=== PATIENT | female | born 1955 | race Caucasian/White ===

== ENCOUNTER 2016-04-30 06:16 | Inpatient (IN) ==
[2016-04-24 12:52] LABS: Basophils # (Auto) 0 K/mcL (0.0-0.3); Basophils % (Auto) 0.3 % (0.0-2.0); Eosinophils # (Auto) 0.3 K/mcL (0.0-0.7); Eosinophils % (Auto) 2.1 % (0.0-7.0); Granulocytes % (Auto) 70.6 % (38.0-78.0); Lymphocytes # (Auto) 2.1 K/mcL (1.5-4.8); Lymphocytes % (Auto) 17.1 % (15.5-49.0); Mean Cell Volume 85.9 fL (80.0-100.0); Mean Corpuscular HGB Conc 32.4 g/dL (31.0-36.0); Mean Corpuscular Hemoglobin 27.9 pg (26.0-34.0); Monocytes # (Auto) 1.2 K/mcL (0.1-0.9); Monocytes % (Auto) 9.9 % (1.0-9.0); Platelet Count 413 K/mcL (140-440); RBC 4.74 M/mcL (4.00-5.20); Red Cell Distribution Width 13.6 % (11.5-14.5)
[2016-04-24 12:59] LABS: Blood Urea Nitrogen 12 mg/dl (8-23)
[2016-04-24 14:03] LABS: Appearance,Urine HAZY; Bilirubin,Urine NEG (NEG); Color,Urine YELLOW; Glucose,Urine (UA) NEGATIVE (NEG); Leukocyte Esterase,Urine NEG /uL (NEG); Nitrate,Urine NEG (NEG); Protein,Urine NEG (NEG); Specific Gravity,Urine 1.021 (1.000-1.035); Urine Blood NEG mg/dL (<0.03); Urobilinogen,Urine NEG (NEG)
[~2016-04-30 06:16] MED LIST: ACETAMINOPHEN 500 MG TABLET PO SCH; CELECOXIB 200 MG CAPSULE PO SCH; PREGABALIN 150 MG CAPSULE PO SCH; ceFAZolin 1 GM VIAL IV SCH; oxyCODONE 10 MG TAB.ER.12H PO SCH
[2016-04-30] MEDS ORDERED: KETOROLAC 30 MG, ROPIVACAINE HCL/PF 49.5 ML, EPINEPHrine 0.5 MG, 0.9 % SODIUM CHLORIDE ... IJ SCH (06:30)
[2016-04-30] MEDS ORDERED: LIDOCAINE HCL/PF 100 MG/5 ML SYRINGE IV ONE (07:50)
[2016-04-30] MEDS ORDERED: MIDAZOLAM 5 MG/5 ML VIAL IV ONE (07:50)
[2016-04-30] MEDS ORDERED: DEXAMETHASONE 10 MG/ML VIAL IV ONE (07:50)
[2016-04-30] MEDS ORDERED: ONDANSETRON 4 MG/2 ML VIAL IV ONE (07:50)
[2016-04-30] MEDS ORDERED: PROPOFOL 200 MG/20 ML VIAL IV ONE (07:50)
[2016-04-30] MEDS ORDERED: ROPIVACAINE HCL/PF 30 ML VIAL IJ ONE (07:50)
[2016-04-30] MEDS ORDERED: TRANEXAMIC ACID 1,000 MG/10 ML VIAL IV ONE ×2 (07:50→09:32)
[2016-04-30] MEDS ORDERED: GENTAMICIN SULFATE 800 MG/20 ML VIAL IR ONE (08:41)
[2016-04-30] MEDS ORDERED: diphenhydrAMINE 50 MG/ML VIAL IV PRN (08:50)
[2016-04-30] MEDS ORDERED: HYDROmorphone 2 MG/ML SYRINGE IV PRN ×2 (08:50→09:32)
[2016-04-30] MEDS ORDERED: NALOXONE HCL 0.4 MG/ML VIAL IV PRN (08:50)
[2016-04-30] MEDS ORDERED: fentaNYL 100 MCG/2 ML VIAL IV PRN (08:50)
[2016-04-30] MEDS ORDERED: ONDANSETRON 4 MG/2 ML VIAL IV PRN ×2 (08:50→09:32)
[2016-04-30] MEDS ORDERED: IPRATROPIUM/ALBUTEROL 3 ML AMPUL.NEB NEB PRN (08:50)
[2016-04-30] MEDS ORDERED: FLUMAZENIL 0.1 MG/ML ML IV PRN (08:50)
[2016-04-30] MEDS ORDERED: PROMETHAZINE 25 MG/ML VIAL IV PRN (08:50)
[2016-04-30] MEDS ORDERED: LACTATED RINGERS 250 ML IV PRN (08:50)
[2016-04-30] MEDS ORDERED: MEPERIDINE 25 MG/ML SYRINGE IV PRN (08:50)
[2016-04-30] MEDS ORDERED: METHOCARBAMOL 1,000 MG/10 ML VIAL IV PRN (08:50)
[2016-04-30] MEDS ORDERED: BENZOCAINE/MENTHOL 1 LOZENGE PO PRN ×2 (08:50→09:32)
[2016-04-30] MEDS ORDERED: LACTATED RINGERS 1,000 ML IV SCH (09:00)
--- NOTE | 2016-04-30 09:31 | Brief Operative Note ---
Date of procedure: 04/30/16 Pre-op diagnosis: right knee djd Post-op diagnosis: same Procedure: Right tka Grafts/Implants: Yes Anesthesia: GETA Findings: 3 compartment djd Complications: none Complications Description: 04/30/16 09:31 none Surgeon: William Dave Dev Technical Mgr: Jonny Shankar Estimated blood loss (cc): 20 Tourniquet Time (Minutes): 50 Specimens Removed/Pathology: none sent Condition: stable Disposition: PACU
[2016-04-30] MEDS ORDERED: FLEETS ADULT ENEMA PR PRN (09:32)
[2016-04-30] MEDS ORDERED: HYDROcodone/APAP 10/325MG TABLET PO PRN (09:32)
[2016-04-30] MEDS ORDERED: TEMAZEPAM 15 MG CAPSULE PO PRN (09:32)
[2016-04-30] MEDS ORDERED: ACETAMINOPHEN 325 MG TABLET PO PRN (09:32)
[2016-04-30] MEDS ORDERED: MAGNESIUM HYDROXIDE 30 ML ORAL.SUSP PO PRN (09:32)
[2016-04-30] MEDS ORDERED: POLYETHYLENE GLYCOL 3350 17 GM PACKET PO PRN (09:32)
[2016-04-30] MEDS ORDERED: BISACODYL 10 MG SUPP.RECT PR PRN (09:32)
--- NOTE | 2016-04-30 09:59 | XRay Report ---
HISTORY: Reason for Exam:Post-Op Total Knee FINDINGS: There is a well positioned total knee prosthesis. There is no fracture. There is air in the joint space and subcutaneous tissues. IMPRESSION: Well-positioned right-sided knee prosthesis Interpreted and Authenticated by: Vadim Jacob 04/30/16
--- NOTE | 2016-04-30 11:50 | Operative Note ---
DATE OF OPERATION: 04/30/2016 PREOPERATIVE DIAGNOSIS: Right knee degenerative arthritis, medial compartment. POSTOPERATIVE DIAGNOSIS: Right knee degenerative arthritis, medial, patellofemoral and lateral compartment. PROCEDURE: Right total knee arthroplasty. SURGEON: William Dave MD. SOLAR PROJECT ENGINEER: Jonny Shankar PA-C. ANESTHESIA: General LMA anesthesia. TOURNIQUET TIME: 50 minutes. ESTIMATED BLOOD LOSS: About 40 mL. IMPLANTS: A size 3 femoral component, size 3 tibial baseplate with an 11 mm poly and a 31 mm patellar button. DESCRIPTION OF PROCEDURE: The patient was brought to the operating room and put to sleep with general LMA anesthesia. Once asleep, the patient had the right leg sterilely prepped and draped in the usual sterile fashion. A timeout was performed, and we confirmed the operative side. Preop antibiotics had been given and tranexamic acid. Once this had been confirmed, a midline incision through the Ioban was placed and dissected anterior medially. Once we confirmed that the medial compartment was severely worn down to bone, we inspected the patellofemoral joint which had some grade IV lesions centrally and a small lesion full-thickness on the lateral femoral condyle. All three compartments had bone exposed. With this, we proceeded with a total knee arthroplasty, placed an intramedullary guide tyler, and then made our distal femoral cut at 5 degrees of valgus at 9 mm in total thickness. We made our anterior and posterior chamfer cuts for a size 3 component. Once this was done, we then prepared the tibia. Preserving the PCL, we did remove the remnants of the medial meniscus and made our cut 9 mm below the medial compartment. Once done, we then placed a trial size 3 tibial baseplate that fit very nicely. Some osteophytes were removed medially. It covered the bone very nicely. Anterior, posterior, and external rotation of about 3-4 degrees. We then irrigated thoroughly. We then tapped into place a trial baseplate and size 3 femur. We made the peg holes and set the rotation for the tibial baseplate. Once this was complete, we then trialed a size 9 and then a size 11. We did strip the MCL to bring the leg back to being a little straighter with a curved osteotome. Once complete, we then prepared the patella. It measured a total thickness of 23 mm. This was cut to 13 mm, and we placed a 31 mm patellar button. This covered the bone very nicely. We did make a small chamfer cut laterally. Once we confirmed that the knee was balanced both in flexion and extension, mid flexion and full range of motion, patella tracked anatomically, we irrigated thoroughly. We then cemented into place a size 3 tibial baseplate, a size 3 femur, an 11 mm poly and a 31 mm patellar button. All these were cemented into place. We irrigated and deflated the tourniquet at approximately 50 minutes. We controlled bleeding with the Bovie and then closed the capsule with #2 FiberWire interrupted stitches and then a double-armed #1 Maxon. This was an interlocking stitch. This locked and repaired the medial capsule. We closed the skin with 2-0 Vicryl and sebas superficially. The patient tolerated this well. There were no complications. RBH:kam Job ID: [id number] Doc ID: [id number] William Dave MD
[2016-04-30] MEDS: KETOROLAC 15 MG/ML VIAL IV SCH ×3 (13:16→23:18)
[2016-04-30] MEDS: 0.9 % SODIUM CHLORIDE 10 ML SYRINGE IV SCH ×2 (13:21→22:53)
[2016-04-30] MEDS: 0.45 % SODIUM CHLORIDE 1,000 ML IV SCH ×3 (14:47→23:18)
[2016-04-30] MEDS: ceFAZolin 1 GM VIAL IV SCH ×2 (16:34→23:18)
[2016-04-30] MEDS: DOCUSATE SODIUM 100 MG CAPSULE PO SCH (20:24)
[2016-04-30] MEDS: ASPIRIN 325 MG ENTERIC COATED TABLET PO SCH (20:24)
[2016-04-30] MEDS ORDERED: SENNOSIDES 1 TABLET PO SCH (21:00)
[2016-05-01] MEDS: KETOROLAC 15 MG/ML VIAL IV SCH ×2 (05:35→12:52)
[2016-05-01] MEDS: 0.45 % SODIUM CHLORIDE 1,000 ML IV SCH ×2 (05:36→10:26)
[2016-05-01] MEDS: 0.9 % SODIUM CHLORIDE 10 ML SYRINGE IV SCH ×2 (05:36→12:54)
[2016-05-01] MEDS: HYDROcodone/APAP 10/325MG TABLET PO PRN ×3 (05:43→15:11)
--- NOTE | 2016-05-01 07:49 | Orthopedic Progress Note ---
Subjective Patient information: Note initiated : 05/01/16 at 7:48 am Service Date, if different from initiated Date: [] Patient: Maryjane Ferrer 61 y/o F admitted on 04/30/16 for Right Uni Medial Lavon Knee. Chief Complaint: [Pt is stable this morning on post operative day 1 without any significant concerns or complaints. Patients vital signs have remained stable. Patients dressing is dry and exhibits a grossly intact neurovascular and neuromotor exam. Patients 10 point ROS is otherwise negative. ] Objective Vital signs: Vital Signs Temp Pulse Resp BP Pulse Ox 05/01/16 07:45 94 05/01/16 03:31 98.3 F 83 14 115/69 92 05/01/16 02:00 94 04/30/16 23:47 98.2 F 84 16 109/65 94 04/30/16 19:23 97.5 F L 85 16 138/66 95 04/30/16 18:00 96 04/30/16 16:00 97.4 F L 78 18 110/74 97 04/30/16 14:00 95 04/30/16 13:24 90 04/30/16 12:30 82 114/74 96 04/30/16 12:16 80 113/73 96 04/30/16 12:04 79 121/79 93 04/30/16 12:00 97.2 F L 74 18 110/72 97 04/30/16 11:34 81 117/77 94 04/30/16 11:19 83 113/75 97 04/30/16 11:04 81 104/67 97 04/30/16 10:49 81 124/71 97 04/30/16 10:36 97.3 F L 84 18 119/78 96 04/30/16 10:34 85 119/78 96 04/30/16 10:30 94 04/30/16 10:19 98.6 F 72 18 118/49 94 04/30/16 10:00 85 12 112/50 95 04/30/16 09:45 85 13 106/51 95 04/30/16 09:32 98.6 F 83 13 93/40 97 Intake and Output 04/30/16 05/01/16 05/01/16 21:59 05:59 13:59 Intake Total 1140 / 1140 1740 / 1740 Output Total 630 / 630 900 / 900 400 / 400 Balance 510 / 510 840 / 840 -400 / -400 Intake: IV 400 / 400 1000 / 1000 Sodium Chloride 0.45% 1, 1000 / 1000 000 ml @ 125 mls/hr IV . Q8H VIKI Rx#:[id number] Lactated Ringers 1,000 ml 400 / 400 @ 20 mls/hr IV .Q24H VIKI Rx#:[id number] Oral 740 / 740 740 / 740 Output: Void Amount 630 / 630 900 / 900 400 / 400 Other: Meal Dinner Percent of Meal Consumed 100% Feeding Ability Independent # Voids 1 1 Weight 197 lb Intake & Output: Intake & Output 04/30/16 05/01/16 05/01/16 21:59 05:59 13:59 Intake Total 1140 / 1140 1740 / 1740 Output Total 630 / 630 900 / 900 400 / 400 Balance 510 / 510 840 / 840 -400 / -400 Weight 197 lb Intake: IV 400 / 400 1000 / 1000 Sodium Chloride 0.45% 1, 1000 / 1000 000 ml @ 125 mls/hr IV . Q8H VIKI Rx#:[id number] Lactated Ringers 1,000 ml 400 / 400 @ 20 mls/hr IV .Q24H VIKI Rx#:[id number] Oral 740 / 740 740 / 740 Output: Void Amount 630 / 630 900 / 900 400 / 400 Other: Meal Dinner Percent of Meal Consumed 100% Feeding Ability Independent # Voids 1 1 Incision: Yes healing Incision clean and dry: No Dressing: Yes clean Neurological exam IM: Yes motor sensory intact, Yes neurovascular intact Extremities exam IM: Yes Foot pink and warm, Yes neurovascular intact - Labs CBC & BMP: 05/01/16 04:46 04/24/16 11:01 Labs: Orthopedic Labs 04/24/16 11:01 PT 13.5 INR 1.0 APTT 29 05/01/16 04/24/16 04:46 11:02 Hgb 13.2 Hct 35.6 L 40.7 Assessment and Plan (1) History of total right knee replacement Patient has been educated regarding wound care and dressings, follow up recommendations, and medication use. We will f/u with the patient within 2-3 weeks for wound check. Status: Acute
--- NOTE | 2016-05-01 07:51 | Discharge Summary ---
Ortho Discharge - TKA - Patient Instructions Diet: Regular Diet Activity: activity as tolerated, weight bearing as tolerated Total Knee Protocol: For Total Knee: Start ROM DEIDRE with stationary bike or rocking chair. Work on gaining full extension of knee. Posterior dislocation precautions provided. Hip abductor strengthening and gait training instructions provided. Apply Cryocuff as instructed. Dressing Care: May shower in 2 days Additional Instructions: CMP for home use - Problem Maintenance (1) History of total right knee replacement Status: Acute - Follow Up Plan Follow Up Appointments: William Dave MD [Physician] - 05/15/16 10:10 am Disposition: Home, Self-Care Prognosis: Good Rehab Potential: Good I certify that the patient requires SNF services: No Overall status at discharge: patient is progressing back to baseline - Orders For Discharge Prescriptions: Aspirin [Ecotrin] 325 mg PO BID #60 tab.ec Docusate Sodium [Colace] 100 mg PO BID #60 capsule HYDROcodone/APAP 10/325MG [[place] 10/325Mg] 0.5 - 2 tab PO Q4HP PRN #60 tablet PRN Reason: Pain
[2016-05-01] MEDS ORDERED: OXYBUTYNIN CHLORIDE 5 MG TABLET PO SCH (09:00)
[2016-05-01] MEDS ORDERED: CALCIUM (OYSTER SHELL) 500 MG TABLET PO SCH (09:00)
[2016-05-01] MEDS ORDERED: FISH OIL 1,000 MG CAPSULE PO SCH (09:00)
[2016-05-01] MEDS ORDERED: MULTIVIT,THER IRON,CA,FA & MIN 1 TABLET PO SCH (09:00)
[2016-05-01] MEDS ORDERED: LISINOPRIL 20 MG TABLET PO SCH (09:00)
[2016-05-01] MEDS: ASPIRIN 325 MG ENTERIC COATED TABLET PO SCH (10:00)
[2016-05-01] MEDS: DOCUSATE SODIUM 100 MG CAPSULE PO SCH (10:00)
== END 2016-05-01 15:28 | disposition home or self-care (01) | DRG 470 ==
LOC: SUR 06:16 → MEDSUR 10:24
PROVIDERS: ADMIT Orthopaedic Surgery; ATTEND Orthopaedic Surgery

== ENCOUNTER 2016-10-01 04:35 | Inpatient (IN) ==
[2016-09-24 18:03] LABS: Basophils # (Auto) 0 K/mcL (0.0-0.3); Basophils % (Auto) 0.3 % (0.0-2.0); Eosinophils # (Auto) 0.3 K/mcL (0.0-0.7); Eosinophils % (Auto) 2.5 % (0.0-7.0); Granulocytes % (Auto) 72.5 % (38.0-78.0); Lymphocytes # (Auto) 1.9 K/mcL (1.5-4.8); Mean Cell Volume 85.7 fL (80.0-100.0); Mean Corpuscular HGB Conc 33.2 g/dL (31.0-36.0); Mean Corpuscular Hemoglobin 28.4 pg (26.0-34.0); Monocytes # (Auto) 0.9 K/mcL (0.1-0.9); Monocytes % (Auto) 7.7 % (1.0-12.0); Platelet Count 323 K/mcL (140-440); RBC 4.46 M/mcL (4.00-5.20); Red Cell Distribution Width 13.6 % (11.5-14.5)
[2016-09-24 18:13] LABS: Blood Urea Nitrogen 20 mg/dl (8-23)
[2016-09-24 18:25] LABS: Appearance,Urine HAZY; Bilirubin,Urine NEG (NEG); Color,Urine YELLOW; Glucose,Urine (UA) NEGATIVE (NEG); Leukocyte Esterase,Urine NEG /uL (NEG); Nitrate,Urine NEG (NEG); Protein,Urine NEG (NEG); Specific Gravity,Urine 1.023 (1.000-1.035); Urine Blood NEG mg/dL (<0.03); Urobilinogen,Urine NEG (NEG)
[2016-10-01] MEDS ORDERED: ACETAMINOPHEN 500 MG TABLET PO SCH (05:00)
[2016-10-01] MEDS ORDERED: ceFAZolin 1 GM VIAL IV SCH (05:00)
[2016-10-01] MEDS ORDERED: CELECOXIB 200 MG CAPSULE PO SCH (05:00)
[2016-10-01] MEDS ORDERED: PREGABALIN 75 MG CAPSULE PO SCH (05:00)
[2016-10-01] MEDS ORDERED: KETOROLAC 30 MG, ROPIVACAINE HCL/PF 49.5 ML, EPINEPHrine 0.5 MG, 0.9 % SODIUM CHLORIDE ... IJ SCH (06:30)
[2016-10-01] MEDS ORDERED: PHENYLEPHRINE 10 MG/ML VIAL IV ONE (07:40)
[2016-10-01] MEDS ORDERED: DEXAMETHASONE 10 MG/ML VIAL IV ONE (07:40)
[2016-10-01] MEDS ORDERED: ONDANSETRON 4 MG/2 ML VIAL IV ONE (07:40)
[2016-10-01] MEDS ORDERED: ROPIVACAINE HCL/PF 30 ML VIAL IJ ONE (07:40)
[2016-10-01] MEDS ORDERED: LIDOCAINE HCL/PF 100 MG/5 ML SYRINGE IV ONE (07:40)
[2016-10-01] MEDS ORDERED: TRANEXAMIC ACID 1,000 MG/10 ML VIAL IV ONE ×2 (07:40→09:25)
[2016-10-01] MEDS ORDERED: PROPOFOL 200 MG/20 ML VIAL IV ONE (07:40)
[2016-10-01] MEDS ORDERED: MIDAZOLAM 5 MG/5 ML VIAL IV ONE (07:40)
[2016-10-01] MEDS ORDERED: GENTAMICIN SULFATE 800 MG/20 ML VIAL IR ONE (08:00)
[2016-10-01] MEDS ORDERED: BENZOCAINE/MENTHOL 1 LOZENGE PO PRN ×2 (09:05→09:25)
[2016-10-01] MEDS ORDERED: ONDANSETRON 4 MG/2 ML VIAL IV PRN ×2 (09:05→09:25)
[2016-10-01] MEDS ORDERED: METHOCARBAMOL 1,000 MG/10 ML VIAL IV PRN (09:05)
[2016-10-01] MEDS ORDERED: PROMETHAZINE 25 MG/ML VIAL IM PRN (09:05)
[2016-10-01] MEDS ORDERED: diphenhydrAMINE 50 MG/ML VIAL IV PRN (09:05)
[2016-10-01] MEDS ORDERED: ATROPINE SULFATE 0.4 MG/ML VIAL IV PRN (09:05)
[2016-10-01] MEDS ORDERED: ePHEDrine 50 MG/ML AMPUL IV PRN (09:05)
[2016-10-01] MEDS ORDERED: MEPERIDINE 25 MG/ML SYRINGE IV PRN (09:05)
[2016-10-01] MEDS ORDERED: MEPERIDINE 50 MG/ML SYRINGE IM PRN (09:05)
[2016-10-01] MEDS ORDERED: LACTATED RINGERS 250 ML IV PRN (09:05)
[2016-10-01] MEDS ORDERED: NALOXONE HCL 0.4 MG/ML VIAL IV PRN (09:05)
[2016-10-01] MEDS ORDERED: FLUMAZENIL 0.1 MG/ML ML IV PRN (09:05)
[2016-10-01] MEDS ORDERED: fentaNYL 100 MCG/2 ML VIAL IV PRN (09:05)
[2016-10-01] MEDS ORDERED: HYDROmorphone 2 MG/ML SYRINGE IV PRN ×2 (09:05→09:25)
[2016-10-01] MEDS ORDERED: PROMETHAZINE 25 MG/ML VIAL IV PRN (09:05)
[2016-10-01] MEDS ORDERED: LACTATED RINGERS 1,000 ML IV SCH (09:15)
[2016-10-01] MEDS ORDERED: TEMAZEPAM 15 MG CAPSULE PO PRN (09:25)
[2016-10-01] MEDS ORDERED: MAGNESIUM HYDROXIDE 30 ML ORAL.SUSP PO PRN (09:25)
[2016-10-01] MEDS ORDERED: ACETAMINOPHEN 325 MG TABLET PO PRN (09:25)
[2016-10-01] MEDS ORDERED: POLYETHYLENE GLYCOL 3350 17 GM PACKET PO PRN (09:25)
[2016-10-01] MEDS ORDERED: BISACODYL 10 MG SUPP.RECT PR PRN (09:25)
[2016-10-01] MEDS ORDERED: HYDROcodone/APAP 10/325MG TABLET PO PRN (09:25)
[2016-10-01] MEDS ORDERED: FLEETS ADULT ENEMA PR PRN (09:25)
--- NOTE | 2016-10-01 09:31 | Brief Operative Note ---
Date of procedure: 10/01/16 Pre-op diagnosis: left knee djd severe 2 of 3 compartments Post-op diagnosis: same Procedure: Left knee nicole tka Grafts/Implants: Yes Anesthesia: GETA Complications: none Surgeon: William Dave Cellophane Tester: Jonny Shankar Estimated blood loss (cc): 21 Tourniquet Time (Minutes): 65 Specimens Removed/Pathology: none sent Condition: stable Disposition: PACU
--- NOTE | 2016-10-01 10:23 | XRay Report ---
HISTORY: Reason for Exam:Post-Op Total Knee FINDINGS: There is a well positioned total knee prosthesis. Small bone chips are present along the superior and inferior articular margins of the patella. There is no other evidence of a fracture. IMPRESSION: Well-positioned left knee prosthesis Interpreted and Authenticated by: Vadim Jacob 10/01/16
[2016-10-01] MEDS: 0.45 % SODIUM CHLORIDE 1,000 ML IV SCH ×2 (10:25→18:21)
--- NOTE | 2016-10-01 10:37 | Operative Note ---
DATE OF OPERATION: 10/01/2016 PREOPERATIVE DIAGNOSIS: Left knee degenerative arthritis, medial and lateral compartments. POSTOPERATIVE DIAGNOSIS: Left knee degenerative arthritis, medial and lateral compartments. PROCEDURE: Left total knee arthroplasty with the BRAD robot. SURGEON: William Dave MD. STORAGE MANAGEMENT CONSULTANT: Jonny Shankar PA-C. ANESTHESIA: General LMA anesthesia. COMPLICATIONS: None. TOTAL TOURNIQUET TIME: 65 minutes. ESTIMATED BLOOD LOSS: 21 mL. IMPLANTS PLACED: Size 2 femur and size 2 tibial baseplate with an 11 mm poly insert. DESCRIPTION OF PROCEDURE: The patient was brought to the operating room and put to sleep with general LMA anesthesia. Once asleep, the patient had the left leg sterilely prepped and draped in the usual sterile fashion and a timeout was performed. We confirmed this as the operative site. Initials were recognized as a left total knee as well as x-rays. Once the left leg was sterilely prepped and draped, we then exsanguinated the leg and inflated the tourniquet to 250 pounds of pressure. We made a midline incision, a mid vastus approach and then two pins below and two pins above the knee and then an array. We registered the hip center of rotation and then placed two intra-articular pins which were registered, 30 points on the femur were registered and 30 on the tibia. We balanced the knee at both 15 degrees and 90 degrees of motion, and then we irrigated thoroughly and then brought in the robot, registered the robot, made our anterior and posterior chamfer cuts, distal femoral cuts. Once the chamfer cuts were made and anterior and posterior cuts were made, we then made the tibial cut. We relieved the posterior cruciate ligament. Once this was done, we then removed any osteophytes posteriorly. We removed the remnants of the meniscus. We then placed a tibial baseplate size 2. Rotation was placed according to rotation of the BRAD robot. We then placed a size 2 femur and then we placed an 11 mm poly. This seemed to balance very nicely. We then prepared the patella measuring a total thickness of 22 mm and then made the cut at 13 mm. We placed a 33 mm patellar button with a small lateral chamfer. We removed these implants, mixed cement, confirmed this as the implant. The balancing of the knee was confirmed by the robot. We irrigated thoroughly. We then cemented into place a size 2 tibia with a 50 mm stem, size 2 femur, size 33 mm patellar button, 11 mm poly. We irrigated thoroughly. Once the cement had dried any excess cement had been removed. We balanced the knee with soft tissue releases medially to balance this to 1-2 mm of play. We irrigated. The leg was perfectly straight and then closed the mid vastus approach with #2 FiberWire and a double looped Maxon. We then placed 2-0 Vicryl under the skin and adhesive closure superficially. The patient tolerated this well without complication. Sterile bandage was applied. RBH:kam Job ID: [id number] Doc ID: [id number] William Dave MD
[2016-10-01] MEDS: KETOROLAC 15 MG/ML VIAL IV SCH ×3 (11:20→23:51)
[2016-10-01] MEDS: 0.9 % SODIUM CHLORIDE 10 ML SYRINGE IV SCH ×2 (12:52→22:18)
[2016-10-01] MEDS: ceFAZolin 1 GM VIAL IV SCH ×2 (15:59→23:50)
[2016-10-01] MEDS: oxyCODONE/APAP 5/325MG TABLET PO PRN ×2 (17:34→21:02)
[2016-10-01] MEDS ORDERED: SENNOSIDES 1 TABLET PO SCH (21:00)
[2016-10-01] MEDS: ASPIRIN 325 MG ENTERIC COATED TABLET PO SCH (21:02)
[2016-10-01] MEDS: DOCUSATE SODIUM 100 MG CAPSULE PO SCH (21:02)
[2016-10-02] MEDS: oxyCODONE/APAP 5/325MG TABLET PO PRN ×4 (03:20→15:28)
[2016-10-02] MEDS: 0.45 % SODIUM CHLORIDE 1,000 ML IV SCH (05:35)
[2016-10-02] MEDS: KETOROLAC 15 MG/ML VIAL IV SCH ×2 (05:49→13:04)
[2016-10-02] MEDS: 0.9 % SODIUM CHLORIDE 10 ML SYRINGE IV SCH ×2 (05:54→13:04)
--- NOTE | 2016-10-02 07:23 | Orthopedic Progress Note ---
Subjective Patient information: Note initiated : 10/02/16 at 7:22 am Service Date, if different from initiated Date: [] Patient: Maryjane Ferrer 61 y/o F admitted on 10/01/16 for Left Total Knee Arthroplasty - Robotic. Chief Complaint: [Pt is stable this morning on post operative day 1 without any significant concerns or complaints. Patients vital signs have remained stable. Patients dressing is dry and exhibits a grossly intact neurovascular and neuromotor exam. Patients 10 point ROS is otherwise negative. ] Objective Vital signs: Vital Signs Temp Pulse Resp BP Pulse Ox 10/02/16 07:21 97 10/02/16 04:00 98.0 F 88 20 147/68 94 10/02/16 01:00 94 10/01/16 23:55 97.8 F 80 16 123/62 94 10/01/16 20:00 97.3 F 90 16 134/66 94 10/01/16 17:00 96 10/01/16 15:40 98.3 F 16 114/74 92 10/01/16 13:26 94 10/01/16 13:00 16 124/73 94 10/01/16 12:30 16 123/76 94 10/01/16 12:00 97.9 F 16 124/66 97 10/01/16 11:56 98.2 F 16 119/77 96 10/01/16 11:15 16 120/64 95 10/01/16 11:00 14 114/52 98 10/01/16 10:45 98.7 F 14 127/69 93 10/01/16 10:18 97.4 F 81 18 117/55 94 10/01/16 10:08 97.5 F 78 18 122/61 97 10/01/16 10:03 97.8 F 84 18 104/50 97 10/01/16 09:58 97.8 F 87 17 107/69 97 10/01/16 09:53 97.5 F 87 14 127/58 97 10/01/16 09:48 97.1 F 82 13 111/48 97 10/01/16 09:43 97.8 F 92 H 12 113/45 97 Intake and Output 10/01/16 10/02/16 10/02/16 21:59 05:59 13:59 Intake Total 1633 / 1633 1715 / 1715 Output Total 1250 / 1250 1025 / 1025 Balance 383 / 383 690 / 690 Intake: IV 793 / 793 915 / 915 Sodium Chloride 0.45% 1, 793 / 793 915 / 915 000 ml @ 100 mls/hr IV . Q10H VIKI Rx#:[id number] Oral 840 / 840 800 / 800 Output: Void Amount 1250 / 1250 1025 / 1025 Other: Meal Dinner Percent of Meal Consumed 100% Feeding Ability Independent # Voids 1 Weight 206 lb 8 oz Intake & Output: Intake & Output 10/01/16 10/02/16 10/02/16 21:59 05:59 13:59 Intake Total 1633 / 1633 1715 / 1715 Output Total 1250 / 1250 1025 / 1025 Balance 383 / 383 690 / 690 Weight 206 lb 8 oz Intake: IV 793 / 793 915 / 915 Sodium Chloride 0.45% 1, 793 / 793 915 / 915 000 ml @ 100 mls/hr IV . Q10H VIKI Rx#:[id number] Oral 840 / 840 800 / 800 Output: Void Amount 1250 / 1250 1025 / 1025 Other: Meal Dinner Percent of Meal Consumed 100% Feeding Ability Independent # Voids 1 Incision: Yes healing Incision clean and dry: Yes Dressing: Yes clean, Yes dry Weight bearing status: full Neurological exam IM: Yes motor sensory intact, Yes neurovascular intact Extremities exam IM: Yes Foot pink and warm, Yes neurovascular intact - Labs CBC & BMP: 10/02/16 04:55 09/24/16 16:38 Labs: Orthopedic Labs 09/24/16 16:38 PT 14.0 INR 1.1 APTT 29 10/02/16 09/24/16 04:55 16:38 Hgb 12.7 Hct 32.4 L 38.2 Assessment and Plan (1) History of total right knee replacement Patient has been educated regarding wound care and dressings, follow up recommendations, and medication use. We will f/u with the patient within 2-3 weeks for wound check. Status: Acute
--- NOTE | 2016-10-02 07:26 | Discharge Summary ---
Ortho Discharge - TKA - Patient Instructions Diet: Regular Diet Activity: activity as tolerated, weight bearing as tolerated Total Knee Protocol: For Total Knee: Start ROM DEIDRE with stationary bike or rocking chair. Work on gaining full extension of knee. Posterior dislocation precautions provided. Hip abductor strengthening and gait training instructions provided. Apply Cryocuff as instructed. Dressing Care: May shower in 2 days, Aquacel Ag - leave on for 5 days Patient Education: Total Knee Replacement (DC) Additional Instructions: Discharge Instructions: CPM for home use [facility] PT [phone] ext [phone] APPOINTMENT: Do the exercises at home that physical therapy gave you. Take your photo ID, insurance cards, and current medication list with you to your first physical therapy appointment. Wear comfortable clothing for your physical therapy. Weight bearing as tolerated. [facility]- Bring photo ID and Insurance cards to parts picker your C.P.M. If you have the Aquacel Ag dressing, leave in place for 7 days then remove. If dressing becomes soiled (turns black), remove and use gauze 4x4 dressing and silvasorb ointment and change daily. Keep incision clean and dry. If you have Dermabond (a dressing with a mesh-like appearance), leave open to air. You may start showering on post op day #2. The Dermabond dressing can get wet, do not scrub dressing. Pat dry. To avoid constipation while taking any narcotic pain medication, take an over the counter stool softener/laxative. Use your Cryocuff or ice packs as directed, on for 20 minutes at a time throughout the day. This and elevation will help with pain and swelling. Call your physician for fevers above 100.5 or pain not controlled by medication. Your prescriptions are with your discharge information. Some medications were electronically transmitted to your pharmacy of choice. - Problem Maintenance (1) History of total right knee replacement Status: Acute - Follow Up Plan Follow Up Appointments: William Dave MD [Physician] - 10/16/16 11:20 am Disposition: Home, Self-Care Prognosis: Good Rehab Potential: Good I certify that the patient requires SNF services: No Overall status at discharge: patient is progressing back to baseline - Orders For Discharge Prescriptions: Aspirin [Ecotrin] 325 mg PO BID #60 Docusate Sodium [Colace] 100 mg PO BID #60 capsule oxyCODONE/APAP [Percocet 5-325 mg] 1 - 2 tab PO Q4-6HP PRN #75 tablet PRN Reason: Pain
[2016-10-02] MEDS: DOCUSATE SODIUM 100 MG CAPSULE PO SCH (08:50)
[2016-10-02] MEDS: ASPIRIN 325 MG ENTERIC COATED TABLET PO SCH (08:50)
[2016-10-02] MEDS ORDERED: LISINOPRIL 20 MG TABLET PO SCH (09:00)
[2016-10-02] MEDS ORDERED: OXYBUTYNIN CHLORIDE 5 MG TABLET PO SCH (09:00)
[2016-10-02] MEDS ORDERED: CALCIUM (OYSTER SHELL) 500 MG TABLET PO SCH (09:00)
[2016-10-02] MEDS ORDERED: MULTIVIT,THER IRON,CA,FA & MIN 1 TABLET PO SCH (09:00)
== END 2016-10-02 15:55 | disposition home or self-care (01) | DRG 554 ==
LOC: MEDSUR 04:35
PROVIDERS: ADMIT Orthopaedic Surgery; ATTEND Orthopaedic Surgery